=== PATIENT | female | born 1950 | race Hispanic/Latino ===

== ENCOUNTER → 2017-07-21 | Outpatient (CLI) | payer OTHER ==
[~2017-07-21] MED LIST: ASPI-1005 PO; CARV25TA PO; CHOL200074 PO; DOXY100T2 PO; FURO40TA5 PO; INSLAN SQ; LISI-613 PO; NIFE30TA98 PO; OMEG300C3 PO; ROSU5TAB PO; SITA25TA5 PO
== END | disposition home or self-care (01) ==
LOC: SHCH 13:41
PROVIDERS: ATTEND Internal Medicine Cardiovascular Disease
DX: I08.3 Combined rheumatic disorders of mitral, aortic and tricuspid valves (principal); I31.3 Pericardial effusion (noninflammatory); Z95.0 Presence of cardiac pacemaker
CPT/HCPCS: 93306